=== PATIENT | male | born 1965 | race American Indian/Alaskan Native ===

== ENCOUNTER 2017-07-29 13:04 | Inpatient (IN) | payer MEDICARE ==
[2017-07-29] MEDS ORDERED: NACL 0.9% IV ONE (13:27)
[2017-07-29] MEDS ORDERED: ACTIVASE IV ONE ×2 (13:27)
--- NOTE | 2017-07-29 13:27 | Cat Scan Report ---
FINAL REPORT EXAM: CT HEAD/BRAIN WO CON HISTORY: neuro deficits < 6hrs or sx present upon awakening TECHNIQUE: CT of the Head without IV contrast. PRIORS: None currently available. FINDINGS: Small focal area of ill-defined attenuation in the right temporal lobe on series 2:23 and right lateral frontal lobe on series 2:36 may represent areas of acute ischemia. Small area of encephalomalacia noted in the posterior right frontal lobe on series 2:41 is well-defined and appears to represent chronic ischemia or trauma. There is no hemorrhage. There is no midline shift. There is no hydrocephalus. There is no mass. Age appropriate frazier-white matter attenuation is noted. There is no calvarial fracture. The temporal bones demonstrate aerated mastoid air cells. The middle ears appear unremarkable. Paranasal sinuses are unremarkable. Globes are intact. IMPRESSION: Possible acute ischemia noted within the right lateral temporal and frontal lobes. Correlation with MRI may be helpful clinically indicated. Chronic ischemic disease suspected in the posterior right frontal lobe. July 29, 2017 at 1021 PDT: I discussed the findings over phone with Dr. Van.
[2017-07-29] MEDS ORDERED: BABY ASPIRIN PO ONE (13:41)
--- NOTE | 2017-07-29 13:43 | Emergency Department Report ---
HPI - General Chief Complaint: Neuro Symptoms/Deficit Time Seen by Provider: 07/29/17 13:10 ED Past Medical Hx - Past Medical History Hx Hypertension: Yes Hx Diabetes: Yes - Surgical History Past Surgical History?: No Hx Coronary Stent: No Hx Internal Defibrillator: No Hx Cholecystectomy: No Hx Appendectomy: No Hx Breast Surgery: No - Social History Smoking Status: Never Smoker Substance Use Type: None ED Review of Systems ROS: Stated complaint: POSS STROKE Other details as noted in HPI Physical Exam - Physical Exam Vital Signs: Vital Signs 07/29/17 13:04 Temperature 98.8 F Pulse Rate 71 Respiratory 18 Rate Blood Pressure 138/93 ED Course Vital Signs 07/29/17 13:04 Temperature 98.8 F Pulse Rate 71 Respiratory 18 Rate Blood Pressure 138/93 Critical care attestation.: If time is entered above; I have spent that time in minutes in the direct care of this critically ill patient, excluding procedure time. ED Disposition Clinical Impression: Left temporal lobe infarction TIA (transient ischemic attack) Qualifiers: Transient cerebral ischemia type: unspecified Qualified Code(s): G45.9 - Transient cerebral ischemic attack, unspecified Disposition: DC-09 OP ADMIT IP TO THIS HOSP Is pt being admited?: Yes Does the pt Need Aspirin: Yes Condition: Fair Time of Disposition: 13:42
--- NOTE | 2017-07-29 13:45 | Emergency Department Report ---
HPI - General Chief Complaint: Neuro Symptoms/Deficit Time Seen by Provider: 07/29/17 13:10 - HPI HPI: The patient's 51-year-old male with a history of heart disease, and whom presents for evaluation of strokelike symptoms. The patient reports sudden onset of left arm and hand paralysis and coordination difficulty, right facial droop, inability to speak one hour prior to arrival. Per EMS the patient's symptoms were witnessed by them and resolve in route to the ED. The patient denies fever, head injury, headache, neck pain, neck stiffness, vision or hearing changes, smell or taste changes, current paresthesias or lateralizing motor deficit, current facial drooping or slurred speech, seizure-like activity , urine or bowel incontinence or retention, or current other focal neurological deficit. ED Past Medical Hx - Past Medical History Hx Hypertension: Yes Hx Diabetes: Yes - Surgical History Past Surgical History?: No Hx Coronary Stent: No Hx Internal Defibrillator: No Hx Cholecystectomy: No Hx Appendectomy: No Hx Breast Surgery: No - Social History Smoking Status: Never Smoker Substance Use Type: None - Medications Home Medications: Home Medications Medication Instructions Recorded Confirmed Last Taken Type Carvedilol [Coreg] 25 mg PO BID 07/29/17 07/29/17 Unknown History Furosemide [Lasix TAB] 40 mg PO QDAY 07/29/17 07/29/17 Unknown History Gabapentin [Neurontin] 300 mg PO DAILY 07/29/17 07/29/17 Unknown History HumuLIN 70/30 Kwikpen 5 units SQ BID 07/29/17 07/29/17 Unknown History Hydralazine HCl 25 mg PO TID 07/29/17 07/29/17 Unknown History ISOSORBIDE MONOnitrate [Imdur ER] 60 mg PO QDAY 07/29/17 07/29/17 Unknown History Lisinopril [Zestril TAB] 40 mg PO QDAY 07/29/17 07/29/17 Unknown History Omeprazole 40 mg PO DAILY 07/29/17 07/29/17 Unknown History Simvastatin 40 mg PO DAILY 07/29/17 07/29/17 Unknown History Spironolactone [Aldactone] 25 mg PO QDAY 07/29/17 07/29/17 Unknown History ED Review of Systems ROS: Stated complaint: POSS STROKE Other details as noted in HPI Constitutional: denies: fever ENT: denies: throat or neck pain Respiratory: denies: cough, shortness of breath Cardiovascular: denies: chest pain Endocrine: denies unexplained weight loss or gain Gastrointestinal: denies: abdominal pain, nausea Genitourinary: denies: dysuria Musculoskeletal: denies: leg swelling Skin: denies: rash Neurological: reports facial drooping, slurred speech, and left upper extremity lateralizing motor weakness denies: headache Hematological/Lymphatic: denies: easy bleeding or easy bruising Psych: denies sadness or hopelessness Physical Exam - Physical Exam Vital Signs: Vital Signs 07/29/17 13:04 Temperature 98.8 F Pulse Rate 71 Respiratory 18 Rate Blood Pressure 138/93 Physical Exam: General: well-nourished, well-developed, no acute distress Head: Normocephalic, atraumatic Eyes: normal sclera ENT: Mucous membranes are pink and moist Neck: trachea midline, neck supple, No neck stiffness, no cervical adenopathy Respiratory: Breath sounds equal bilaterally, no wheezing, rales, or rhonchi Cardio: S1 and S2 present, no murmurs, rubs, gallops, capillary refill is brisk Abdomen: Normoactive bowel sounds, soft abdomen, no rigidity, no guarding or rebound tenderness Musc: No pitting edema Skin: No rash Neuro: alert oriented x4, normal cognition, speech normal, PERRL, EOM intact, no facial drooping, no uvula or tongue deviation on protrusion, no deficit with rotation of neck or shoulder shrug, no obvious gross motor deficit in the upper or lower extremities with flexion or extension at the shoulder, elbow, wrist, hip, knee, or ankle bilaterally, no obvious gross sensation deficit to crude touch or 2 pt discrimination, 2+ symmetric reflexes on DTR testing, no coordination deficit with [id number] or [id number] testing, Babinski downgoing, patient able to to ambulate without abnormal gait Psych: Normal affect ED Course Vital Signs 07/29/17 13:04 Temperature 98.8 F Pulse Rate 71 Respiratory 18 Rate Blood Pressure 138/93 ED Medical Decision Making - Lab Data Result diagrams: 07/29/17 13:23 07/29/17 13:23 - Medical Decision Making The patient was seen and examined by myself. The patient is placed on a shelter monitor and continuous pulse ox. On initial evaluation, the patient was found to be in no distress. Evaluation orders were placed. Code stroke was called. CT scan of the head was obtained and revealed findings concerning for a right thalamus ischemic infarct. The on-call neurologist was contacted. He evaluated the patient. He submitted that the patient is not a TPA candidate as the patient's symptoms have all resolved. As the patient's symptoms are all resolved, as the patient has no neuro deficits on my exam or the telemetry neurologist Dr. Ye's evaluation, the patient is given asprin for txt of his stroke. Lab results are grossly not concerning. Dr. Acosta the physician on-call for the hospitalist service was contacted. He agreed to admit the patient for further treatment and close monitoring. The ED admit order was placed. The patient was admitted in guarded condition. Critical care attestation.: If time is entered above; I have spent that time in minutes in the direct care of this critically ill patient, excluding procedure time. ED Disposition Clinical Impression: Left temporal lobe infarction TIA (transient ischemic attack) Qualifiers: Transient cerebral ischemia type: unspecified Qualified Code(s): G45.9 - Transient cerebral ischemic attack, unspecified Disposition: DC-09 OP ADMIT IP TO THIS HOSP Is pt being admited?: Yes Does the pt Need Aspirin: Yes Condition: Fair Time of Disposition: 13:45
[2017-07-29 13:47] LABS: Basophils # (Auto) 0.1 K/mm3 (0.0-0.1); Basophils % (Auto) 0.9 % (0.0-1.8); Eosinophils # (Auto) 0.1 K/mm3 (0.0-0.4); Eosinophils % (Auto) 0.7 % (0.0-4.3); Hematocrit 48.8 % (35.5-45.6); Hemoglobin 15.7 gm/dl (11.8-15.2); Lymphocytes # (Auto) 3.6 K/mm3 (1.2-5.4); Lymphocytes % (Auto) 46.9 % (13.4-35.0); Mean Corpuscular HGB Conc 32 % (32-34); Mean Corpuscular Hemoglobin 27 pg (28-32); Mean Corpuscular Volume 83 fl (84-94); Monocytes # (Auto) 0.6 K/mm3 (0.0-0.8); Monocytes % (Auto) 8.4 % (0.0-7.3); Platelet Count 258 K/mm3 (140-440); Red Blood Count 5.88 M/mm3 (3.65-5.03)
[2017-07-29 13:57] LABS: INR 0.88 (0.87-1.13)
[2017-07-29 13:58] LABS: Partial Thromboplastin Time 33.1 Sec. (24.2-36.6)
[2017-07-29 14:46] LABS: BUN/Creatinine Ratio 15; Blood Urea Nitrogen 15 mg/dL (9-20); Calcium 9.1 mg/dL (8.4-10.2); Hemolysis Index 28
--- NOTE | 2017-07-29 17:32 | History and Physical Report ---
History of Present Illness Date of examination: 07/29/17 Date of admission: 07/29/2017 Chief complaint: Chief complaint: Left upper extremity weakness and unable to talk which lasted for 30 minutes one hour prior to admission History of present illness: LESLIE: 51-year-old -German male comes in for difficulty in talking and left upper extremity weakness which lasted about 30 minutes and recovered completely. This happened about 1 hour prior to arrival. Patient says that he his back to normal now. Patient has a history of hypertension and insulin- dependent diabetes coronary artery disease hyperlipidemia and gastroesophageal refers disease. No recent travel or shortness of breath No chest pain Patient able to walk normally and talk normally now. Past Medical History Hx Hypertension: Yes Hx Diabetes: Yes Surgical History Past Surgical History?: No Hx Coronary Stent: No Hx Internal Defibrillator: No Hx Cholecystectomy: No Hx Appendectomy: No Hx Breast Surgery: No Social History Smoking Status: Never Smoker Substance Use Type: None Family history Hypertension Medications Home Medications: Home Medications Medication Instructions Recorded Confirmed Last Taken Type Carvedilol [Coreg] 25 mg PO BID 07/29/17 07/29/17 Unknown History Furosemide [Lasix TAB] 40 mg PO QDAY 07/29/17 07/29/17 Unknown History Gabapentin [Neurontin] 300 mg PO DAILY 07/29/17 07/29/17 Unknown History HumuLIN 70/30 Kwikpen 5 units SQ BID 07/29/17 07/29/17 Unknown History Hydralazine HCl 25 mg PO TID 07/29/17 07/29/17 Unknown History ISOSORBIDE MONOnitrate [Imdur ER] 60 mg PO QDAY 07/29/17 07/29/17 Unknown History Lisinopril [Zestril TAB] 40 mg PO QDAY 07/29/17 07/29/17 Unknown History Omeprazole 40 mg PO DAILY 07/29/17 07/29/17 Unknown History Simvastatin 40 mg PO DAILY 07/29/17 07/29/17 Unknown History Spironolactone [Aldactone] 25 mg PO QDAY 07/29/17 07/29/17 Unknown History Review of Systems ROS: Stated complaint: POSS STROKE Other details as noted in HPI Constitutional: denies: fever ENT: denies: throat or neck pain Respiratory: denies: cough, shortness of breath Cardiovascular: denies: chest pain Endocrine: denies unexplained weight loss or gain Gastrointestinal: denies: abdominal pain, nausea Genitourinary: denies: dysuria Musculoskeletal: denies: leg swelling Skin: denies: rash Neurological: reports facial drooping, slurred speech, and left upper extremity lateralizing motor weakness denies: headache Hematological/Lymphatic: denies: easy bleeding or easy bruising Psych: denies sadness or hopelessness 14 point review of systems done and otherwise negative Medications and Allergies Allergies Allergy/AdvReac Type Severity Reaction Status Date / Time Penicillins Allergy Unknown Verified 07/29/17 13:06 Home Medications Medication Instructions Recorded Confirmed Last Taken Type Carvedilol [Coreg] 25 mg PO BID 07/29/17 07/29/17 Unknown History Furosemide [Lasix TAB] 40 mg PO QDAY 07/29/17 07/29/17 Unknown History Gabapentin [Neurontin] 300 mg PO DAILY 07/29/17 07/29/17 Unknown History HumuLIN 70/30 Kwikpen 5 units SQ BID 07/29/17 07/29/17 Unknown History Hydralazine HCl 25 mg PO TID 07/29/17 07/29/17 Unknown History ISOSORBIDE MONOnitrate [Imdur ER] 60 mg PO QDAY 07/29/17 07/29/17 Unknown History Lisinopril [Zestril TAB] 40 mg PO QDAY 07/29/17 07/29/17 Unknown History Omeprazole 40 mg PO DAILY 07/29/17 07/29/17 Unknown History Simvastatin 40 mg PO DAILY 07/29/17 07/29/17 Unknown History Spironolactone [Aldactone] 25 mg PO QDAY 07/29/17 07/29/17 Unknown History Exam - Physical Exam Narrative exam: Lying in bed comfortably - Constitutional Vitals: Temp Pulse Resp BP Pulse Ox 98.8 F 67 13 130/86 97 07/29/17 13:04 07/29/17 17:00 07/29/17 17:00 07/29/17 17:00 07/29/17 17:00 General appearance: Present: no acute distress, well-nourished - EENT Eyes: Present: PERRL ENT: hearing intact, clear oral mucosa - Neck Neck: Present: supple, normal ROM - Respiratory Respiratory effort: normal Respiratory: bilateral: CTA - Cardiovascular Rhythm: regular Heart Sounds: Present: S1 & S2. Absent: rub, click - Extremities Extremities: no ischemia, pulses intact, pulses symmetrical, No edema Peripheral Pulses: within normal limits - Abdominal General gastrointestinal: Present: soft, non-tender, non-distended, normal bowel sounds Male genitourinary: Present: normal - Integumentary Integumentary: Present: clear, warm, dry - Musculoskeletal Musculoskeletal: gait normal, strength equal bilaterally - Psychiatric Psychiatric: appropriate mood/affect, intact judgment & insight - Neurologic Neurologic: CNII-XII intact, moves all extremities - Allied Health Allied health notes reviewed: nursing, case management Results - Labs CBC & Chem 7: 07/29/17 13:23 07/29/17 13:23 Labs: Laboratory Last Values WBC 7.6 K/mm3 (4.5-11.0) 07/29/17 13:23 RBC 5.88 M/mm3 (3.65-5.03) H 07/29/17 13:23 Hgb 15.7 gm/dl (11.8-15.2) H 07/29/17 13:23 Hct 48.8 % (35.5-45.6) H 07/29/17 13:23 MCV 83 fl (84-94) L 07/29/17 13:23 MCH 27 pg (28-32) L 07/29/17 13:23 MCHC 32 % (32-34) 07/29/17 13:23 RDW 18.0 % (13.2-15.2) H 07/29/17 13:23 Plt Count 258 K/mm3 (140-440) 07/29/17 13:23 Lymph % (Auto) 46.9 % (13.4-35.0) H 07/29/17 13:23 Quay % (Auto) 8.4 % (0.0-7.3) H 07/29/17 13:23 Eos % (Auto) 0.7 % (0.0-4.3) 07/29/17 13:23 Baso % (Auto) 0.9 % (0.0-1.8) 07/29/17 13:23 Lymph # 3.6 K/mm3 (1.2-5.4) 07/29/17 13:23 Quay # 0.6 K/mm3 (0.0-0.8) 07/29/17 13:23 Eos # 0.1 K/mm3 (0.0-0.4) 07/29/17 13:23 Baso # 0.1 K/mm3 (0.0-0.1) 07/29/17 13:23 Seg Neutrophils % 43.1 % (40.0-70.0) 07/29/17 13:23 Seg Neutrophils # 3.3 K/mm3 (1.8-7.7) 07/29/17 13:23 PT 12.4 Sec. (12.2-14.9) 07/29/17 13:23 INR 0.88 (0.87-1.13) 07/29/17 13:23 APTT 33.1 Sec. (24.2-36.6) 07/29/17 13:23 Thrombin Time 15.6 Sec. (15.1-19.6) 07/29/17 13:23 Sodium 140 mmol/L (137-145) 07/29/17 13:23 Potassium 3.7 mmol/L (3.6-5.0) 07/29/17 13:23 Chloride 100.9 mmol/L (98-107) 07/29/17 13:23 Carbon Dioxide 22 mmol/L (22-30) 07/29/17 13:23 Anion Gap 21 mmol/L 07/29/17 13:23 BUN 15 mg/dL (9-20) 07/29/17 13:23 Creatinine 1.0 mg/dL (0.8-1.5) 07/29/17 13:23 Estimated GFR > 60 ml/min 07/29/17 13:23 BUN/Creatinine Ratio 15 % 07/29/17 13:23 Glucose 128 mg/dL (75-100) H 07/29/17 13:23 Calcium 9.1 mg/dL (8.4-10.2) 07/29/17 13:23 Troponin T < 0.010 ng/mL (0.00-0.029) 07/29/17 13:23 NT-Pro-B Natriuret Pep 864.3 pg/mL (0-900) 07/29/17 13:23 - Imaging and Cardiology EKG: report reviewed (sinus bradycardia prolonged MO interval and nonspecific ST -T wave changes-EKG interpreted by me) Assessment and Plan Advance Directives: Yes (full code) VTE prophylaxis?: Chemical Plan of care discussed with patient/family: Yes - Patient Problems (1) TIA (transient ischemic attack) Current Visit: Yes Status: Acute Qualifiers: Transient cerebral ischemia type: unspecified Qualified Code(s): G45.9 - Transient cerebral ischemic attack, unspecified Plan to address problem: Patient has classic transient ischemic attack Will get MRI/MRA carotid duplex scan and echocardiogram We'll also initiate him on Plavix 75 daily Neurology consult by Dr. DUARTE (2) Insulin dependent diabetes mellitus Current Visit: Yes Status: Acute Plan to address problem: Continue insulin and coverage Check hemoglobin A1c (3) Hypertension Current Visit: Yes Status: Chronic Qualifiers: Hypertension type: essential hypertension Qualified Code(s): I10 - Essential (primary) hypertension Plan to address problem: Continue Coreg and lisinopril (4) Peripheral neuropathy Current Visit: Yes Status: Chronic Qualifiers: Peripheral neuropathy type: polyneuropathy, unspecified Qualified Code(s): G62.9 - Polyneuropathy, unspecified Plan to address problem: Continue gabapentin (5) Hyperlipidemia Current Visit: Yes Status: Chronic Qualifiers: Hyperlipidemia type: mixed hyperlipidemia Qualified Code(s): E78.2 - Mixed hyperlipidemia Plan to address problem: Continue statins (6) GERD (gastroesophageal reflux disease) Current Visit: Yes Status: Chronic Qualifiers: Esophagitis presence: without esophagitis Qualified Code(s): K21.9 - Gastro -esophageal reflux disease without esophagitis Plan to address problem: Continue omeprazole or a substitute (7) DVT prophylaxis Current Visit: Yes Status: Acute Plan to address problem: Heparin subcutaneously 5000 every 12
[2017-07-29] MEDS ORDERED: DILAUDID IV PRN (17:34)
[2017-07-29] MEDS ORDERED: ZOFRAN IV PRN ×2 (17:34→21:40)
[2017-07-29] MEDS ORDERED: SODIUM CHLORIDE FLUSH SYRINGE 10 ML IV PRN ×3 (17:34→21:43)
[2017-07-29] MEDS ORDERED: TYLENOL PO PRN ×2 (17:34→21:40)
[2017-07-29] MEDS ORDERED: MORPHINE IV PRN (17:34)
[2017-07-29] MEDS: ALDACTONE PO SCH (18:13)
[2017-07-29] MEDS: IMDUR PO SCH (18:14)
[2017-07-29] MEDS: ZESTRIL PO SCH (18:15)
[2017-07-29] MEDS: LASIX PO SCH (18:15)
[2017-07-29] MEDS: NEURONTIN PO SCH (18:15)
[2017-07-29] MEDS: COREG PO SCH (21:20)
[2017-07-29] MEDS: APRESOLINE PO SCH (21:20)
[2017-07-29] MEDS: PRAVACHOL PO SCH (21:20)
[2017-07-29] MEDS: SODIUM CHLORIDE FLUSH SYRINGE 10 ML IV SCH ×2 (21:21→23:02)
[2017-07-29] MEDS ORDERED: APRESOLINE IV PRN (21:43)
[2017-07-29] MEDS ORDERED: INSULIN ISOPHANE HUMAN SQ SCH (22:00)
[2017-07-29] MEDS ORDERED: INSULIN REGULAR HUMAN SQ SCH (22:00)
[2017-07-29] MEDS ORDERED: PEPCID IV SCH (22:00)
[2017-07-29] MEDS: HumaLOG SUB-Q SCH (22:45)
[2017-07-29] MEDS: PLAVIX PO SCH (23:00)
[2017-07-29] MEDS: HEPARIN SUB-Q SCH (23:01)
[2017-07-30] MEDS: HumaLOG SUB-Q SCH ×4 (07:40→23:35)
[2017-07-30] MEDS: APRESOLINE PO SCH ×3 (08:07→21:43)
[2017-07-30] MEDS ORDERED: NON-FORMULARY (Omeprazole [Omeprazole] 40 MG) PO SCH (10:00)
[2017-07-30] MEDS ORDERED: NON-FORMULARY (Simvastatin [Simvastatin] 40 MG) PO SCH (10:00)
[2017-07-30] MEDS: COREG PO SCH ×2 (11:19→21:43)
[2017-07-30] MEDS: IMDUR PO SCH (11:24)
[2017-07-30] MEDS: LASIX PO SCH (11:25)
[2017-07-30] MEDS: ZESTRIL PO SCH (11:25)
[2017-07-30] MEDS: NEURONTIN PO SCH ×4 (11:25→21:44)
[2017-07-30] MEDS: HEPARIN SUB-Q SCH ×3 (11:26→21:42)
[2017-07-30] MEDS: PLAVIX PO SCH (11:41)
[2017-07-30] MEDS: PROTONIX PO SCH (11:41)
[2017-07-30] MEDS: SODIUM CHLORIDE FLUSH SYRINGE 10 ML IV SCH ×4 (11:42→21:44)
[2017-07-30] MEDS: ALDACTONE PO SCH (12:01)
[2017-07-30] MEDS: PROCARDIA XL PO SCH (12:02)
[2017-07-30 12:34] LABS: Basophils % (Auto) 0.5 % (0.0-1.8); Eosinophils % (Auto) 0.4 % (0.0-4.3); Hematocrit 51.4 % (35.5-45.6); Hemoglobin 16.8 gm/dl (11.8-15.2); Lymphocytes # (Auto) 2.6 K/mm3 (1.2-5.4); Lymphocytes % (Auto) 31.3 % (13.4-35.0); Mean Corpuscular HGB Conc 33 % (32-34); Mean Corpuscular Hemoglobin 27 pg (28-32); Mean Corpuscular Volume 83 fl (84-94); Monocytes # (Auto) 0.6 K/mm3 (0.0-0.8); Monocytes % (Auto) 6.6 % (0.0-7.3); Platelet Count 240 K/mm3 (140-440); Red Blood Count 6.21 M/mm3 (3.65-5.03)
[2017-07-30 12:47] LABS: Iron 145 ug/dL (49-181); Total Iron Binding Capacity 350 mcg/dL (250-450)
[2017-07-30 12:48] LABS: Alanine Aminotransferase 11 units/L (7-56); BUN/Creatinine Ratio 15; Blood Urea Nitrogen 12 mg/dL (9-20); Calcium 9.4 mg/dL (8.4-10.2); Chol/HDL Ratio 5.35 %; HDL Cholesterol 34 mg/dL (40-59); Hemolysis Index 10; LDL Cholesterol,Direct 121 mg/dL (50-130)
--- NOTE | 2017-07-30 13:00 | Consultation ---
History of Present Illness Consult date: 07/30/17 Requesting physician: JODY VILLEGAS Reason for Consult: TIA Chief complaint: TIA History of present illness: This 51-year-old left-handed -Turkish male per ER physician: "51-year- old male with a history of heart disease, and whom presents for evaluation of strokelike symptoms. The patient reports sudden onset of left arm and hand paralysis and coordination difficulty, right facial droop, inability to speak one hour prior to arrival. Per EMS the patient's symptoms were witnessed by them and resolve in route to the ED. The patient denies fever, head injury, headache, neck pain, neck stiffness, vision or hearing changes, smell or taste changes, current paresthesias or lateralizing motor deficit, current facial drooping or slurred speech, seizure-like activity, urine or bowel incontinence or retention, or current other focal neurological deficit." He states he had trouble moving his left arm and leg which were numb as well as weak and his tongue was deviated to the right preventing him from speaking, along with left facial droop (not right facial as listed by ER). These symptoms lasted 20-30 minutes associated with some lightheadedness. CT scan on my review shows possibly a hole indicating an old stroke in the medulla versus noise and a subacute stroke adjacent to old right anterior parietal stroke. Blood pressures at home in the 130 to 140s over 80s but are in the 140/100 range here. He has been on 81 mg of aspirin and simvastatin 40 mg today at home. Duplex of carotids was normal with antegrade vertebral artery flow. Past History Past Medical History: diabetes, hypertension. 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 denies: smoking (smoked cigars till 2005), alcohol abuse (quit alcohol in 2069), prescription drug abuse, IV drug use (never illicit drugs) Family history: hypertension (mother and a sister). denies: stroke, other ( negative for epilepsy) Medications and Allergies Allergies Allergy/AdvReac Type Severity Reaction Status Date / Time Penicillins Allergy Unknown Verified 07/29/17 13:06 Home Medications Medication Instructions Recorded Confirmed Last Taken Type Carvedilol [Coreg] 25 mg PO BID 07/29/17 07/29/17 Unknown History Furosemide [Lasix TAB] 40 mg PO QDAY 07/29/17 07/29/17 Unknown History Gabapentin [Neurontin] 300 mg PO DAILY 07/29/17 07/29/17 Unknown History HumuLIN 70/30 Kwikpen 5 units SQ BID 07/29/17 07/29/17 Unknown History Hydralazine HCl 25 mg PO TID 07/29/17 07/29/17 Unknown History ISOSORBIDE MONOnitrate [Imdur ER] 60 mg PO QDAY 07/29/17 07/29/17 Unknown History Lisinopril [Zestril TAB] 40 mg PO QDAY 07/29/17 07/29/17 Unknown History Omeprazole 40 mg PO DAILY 07/29/17 07/29/17 Unknown History Simvastatin 40 mg PO DAILY 07/29/17 07/29/17 Unknown History Spironolactone [Aldactone] 25 mg PO QDAY 07/29/17 07/29/17 Unknown History Active Meds: Active Medications Acetaminophen (Tylenol) 650 mg PO Q4H PRN PRN Reason: Pain MILD(1-3)/Fever >100.5/[place]FF[place] Aspirin (Aspirin) 325 mg PO QDAY [facility] Carvedilol (Coreg) 25 mg PO BID [facility] Last Admin: 07/30/17 11:19 Dose: 25 mg Clonazepam (Klonopin) 1 mg PO QHS [facility] Furosemide (Lasix) 40 mg PO QDAY [facility] Last Admin: 07/30/17 11:25 Dose: 40 mg Gabapentin (Neurontin) 600 mg PO QHS [facility] Gabapentin (Neurontin) 300 mg PO DAILY@1700 [facility] Heparin Sodium (Porcine) (Heparin) 5,000 unit SUB-Q Q12HR [facility] Last Admin: 07/30/17 12:04 Dose: Not Given Hydralazine HCl (Apresoline) 5 mg IV Q6H PRN PRN Reason: Keep SBP between 160-185 mm Hg Hydralazine HCl (Apresoline) 50 mg PO TID [facility] Hydromorphone HCl (Dilaudid) 0.5 mg IV Q3H PRN PRN Reason: Pain , Severe (7-10) Insulin Human Isoph/Insulin Regular (Humulin 70/30) 5 unit SUB-Q BIDDIAB [facility] Last Admin: 07/30/17 11:26 Dose: 5 unit Insulin Human Lispro (Humalog) 0 unit SUB-Q [facility]; Protocol Last Admin: 07/30/17 11:40 Dose: Not Given Isosorbide Mononitrate (Imdur) 60 mg PO QDAY [facility] Last Admin: 07/30/17 11:24 Dose: 60 mg Lisinopril (Zestril) 40 mg PO QDAY [facility] Last Admin: 07/30/17 11:25 Dose: 40 mg Morphine Sulfate (Morphine) 2 mg IV Q4H PRN PRN Reason: Pain, Moderate (4-6) Nifedipine (Procardia Xl) 90 mg PO QDAY [facility] Last Admin: 07/30/17 12:02 Dose: 90 mg Ondansetron HCl (Zofran) 4 mg IV Q8H PRN PRN Reason: Nausea And Vomiting Oxycodone/Acetaminophen (Percocet 5/325) 1 tab PO Q6H PRN PRN Reason: Pain, Moderate (4-6) Pantoprazole Sodium (Protonix) 40 mg PO DAILY [facility] Last Admin: 07/30/17 11:41 Dose: 40 mg Pravastatin Sodium (Pravachol) 80 mg PO QHS [facility] Last Admin: 07/29/17 21:20 Dose: 80 mg Sodium Chloride (Sodium Chloride Flush Syringe 10 Ml) 10 ml IV BID [facility] Last Admin: 07/30/17 11:42 Dose: 10 ml Sodium Chloride (Sodium Chloride Flush Syringe 10 Ml) 10 ml IV PRN PRN PRN Reason: LINE FLUSH Sodium Chloride (Sodium Chloride Flush Syringe 10 Ml) 10 ml IV BID [facility] Last Admin: 07/30/17 11:42 Dose: 10 ml Sodium Chloride (Sodium Chloride Flush Syringe 10 Ml) 10 ml IV PRN PRN PRN Reason: LINE FLUSH Spironolactone (Aldactone) 25 mg PO QDAY [facility] Last Admin: 07/30/17 12:01 Dose: 25 mg Temazepam (Restoril) 15 mg PO QHS [facility] Review of Systems All systems: negative (no headaches or dizziness. Has sleep apnea and was on CPAP for 3 or 4 years but because of moving his residence, has been unable to get a new working CPAP machine for the past 4 years though he is trying to get it now. Also has restless legs but on questioning this seems to also be perhaps periodic limb movement disorder and also REM behavioral sleep disorder with flinging movements since his fiance gets hit by them while he is asleep. He has some sleep talking but no sleep walking. She notes tonic elevation of either arm in sleep that can last 15 minutes if she doesn't gently push the arm down. If she does so, it tends to stay down but moves around also. He takes gabapentin 300 mg at bedtime without any benefit for restless legs or REM behavior sleep disorder.) Physical Examination - Vital Signs Vital Signs: Vital Signs Temp Pulse Resp BP 98.8 F 71 18 138/93 07/29/17 13:04 07/29/17 13:04 07/29/17 13:04 07/29/17 13:04 - Physical Exam Narrative exam: General Appearance: well developed but obese (per BMI) early 50s - Turkish male in NAD but irritable when asked arithmetic questions or name of President, accompanied by his fiance at the bedside. HEENT: atraumatic, normocephalic; no bruits, 2+ Charlie without soreness or induration or enlargement, sclerae nonicteric. Oropharynx pink and moist. Neck: supple, no bruits. Heart: no murmur or extra sounds though sounds are distant. Extremities: no clubbing, cyanosis or edema. 2+ dorsalis pedis pulses bilaterally. Neurologic Exam: Mental Status: Awake, alert, oriented to August 03 though he knows it is Saturday and knows the year, speech is clear, names pen but not tip of pen and gives comb but calls the teeth the "picks" (which is probably a valid answer), and abstracts well. Refuses to name President or [place]bler Upper, serial 7's are poor despite trying to count down on his fingers though he gives 5+7= 12, has some right-left confusion, gets 2 of 3 objects at 3 minutes, cannot spell WORLD or CATCH forwards correctly so did not ask him to try those backwards. Cranial Nerves: thornton full, no papilledema, SVPs present, PERRLA, EOMs full without nystagmus or diplopia, facial sensation intact to pinprick and light touch, no facial weakness, Lugo is midline, palate rises symmetrically to phonation and gags are positive, shoulder shrug is 5 X 2, tongue protrudes midline. Cerebellar: finger to nose slightly dysmetric on the left at the endpoint, heel to levy is normal bilaterally. Sensory: intact to light touch, pinprick, and vibrations. Double simultaneous stimulation is intact. Motor Exam Upper Extremities: no drift or pronation, Mark intact. Client Engagement Specialist are 5 X 2, tone is normal. No atrophy or fasciculations are noted visually. Motor Exam Lower Extremities: no leg lag, quadriceps and anterior tibials and gastrocnemius are 5 X 2. Mark intact. Tone is normal. No atrophy or fasciculations are noted visually. Reflexes: Palmomental, snout and jaw jerk are negative. Triceps, biceps and brachioradialis are 1 on the right and trace in the left bilaterally. Ned' s is negative bilaterally. Knee jerks are 0 right and 1 left becoming trace on the right with reinforcement, ankle jerks are 0 bilaterally even with reinforcement and without clonus. Toes are downgoing strongly on the right and less strongly on the left to Babinski testing. - Assessment Assessment Interval: Baseline - Level of Consciousness 1a. Level of Consciousness: alert - LOC Questions 1b. LOC Questions: answers correctly - LOC Command 1c. LOC Commands: performs tasks correctly - Best Gaze 2. Best Gaze: normal - Visual 3. Visual: no visual loss - Facial Palsy 4. Facial Palsy: normal symmetrical movement - Motor Arm 5b. Motor Arm Right: no drift 5a. Motor Arm Left: no drift - Motor Leg 6a. Motor Leg Left: no drift 6b. Motor Leg Right: no drift - Limb Ataxia 7. Limb Ataxia: present 1 limb - Sensory 8. Sensory: normal - Best Language 9. Best Language: no aphasia - Dysarthria 10. Dysarthria: normal - Extinction and Inattention 11. Extinction/Inattention: no abnormality - Scoring Total Score: 1 Stroke Severity: Minor Stroke Results - Laboratory Findings CBC and BMP: 07/30/17 12:07 07/30/17 12:07 Abnormal Lab Findings: Abnormal Labs 07/29/17 07/29/17 07/30/17 13:23 13:23 06:12 RBC 5.88 H Hgb 15.7 H Hct 48.8 H MCV 83 L MCH 27 L RDW 18.0 H Lymph % (Auto) 46.9 H Boyd % (Auto) 8.4 H Glucose 128 H POC Glucose 132 H HDL Cholesterol 07/30/17 07/30/17 12:07 12:07 RBC 6.21 H Hgb 16.8 H Hct 51.4 H MCV 83 L MCH 27 L RDW 18.0 H Lymph % (Auto) Boyd % (Auto) Glucose POC Glucose HDL Cholesterol 34 L Assessment and Plan Impression: 1. Embolic strokes 2. Hypertension 3. Diabetes 4. Restless legs syndrome (RLS) 5. Periodic limb movements of sleep (PLMS) 6. REM behavioral sleep disorder (RBSD) Plan: 1. Await echo reading. Bubbles were negative. 2. Await brain MRI and MRA. (Later noted he has pacemaker so can't get MRI. Could likely get MRI at [facility] or [facility], arrange through their MRI coordinator who would send him to Cardiac electrophysiology clinic to verify it is ok. They can now do MRIs on even old pacemakers and defibrillators). 3. Aspirin increased to 325 mg per discussion with Dr. Reese at bedside. No need for Plavix yet. 4. Will check iron studies for RLS. If iron is low or ferritin is less than 60 , would suggest Slow-Fe or Feosol OTC bid (building to double that amount if iron is low or ferritin is less than 30). Warn him stools will be black. 5. Will increase to 300 mg gabapentin at supper and 600 mg qhs for RLS and PLMS. 6. Will add clonazepam 1 mg qhs for RBSD. 7. May need 30 day event monitoring as outpatient to rule out PAF. 8. I suggested an SSRI for his irritability. 9. During today's examination, he experienced an episode of hot flash with numbness of left arm for a few minutes without weakness. Blood pressure remained in the 140/100 range for which I had the nurse check with Dr. Reese about perhaps getting some IV hydralazine. 45 min spent including review of CT images and echo report. Thank you for the interesting consultation on this early 50s man. Will sign off. Call for any questions.
--- NOTE | 2017-07-30 19:27 | Progress Note ---
Assessment and Plan Assessment and plan: 51-year-old -Guinean male comes in for difficulty in talking and left upper extremity weakness, and leg, left facial droop which lasted about 30 minutes and recovered completely. This happened about 1 hour prior to arrival. Patient says that he his back to normal now. Patient has a history of hypertension and insulin-dependent diabetes coronary artery disease hyperlipidemia and gastroesophageal refers disease. He also reported tongue deviation. 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 Initial CT Scan showed per the Nurologist possibly a hole indicating an old stroke in the medulla versus noise and a subacute stroke adjacent to old right anterior parietal stroke. No recent travel or shortness of breath. No chest pain Presumed Embolic Stroke HTN RAYNA OBESITY Insulin dependant Diabetes Mellitus Severe Cardiomyopathy s/p Pacemaker Peripheral Neuropathy GERD HYPERLIPIDEMIA RLS PLAN: Supportive care, May need to obtain repeat CT scan brain, Since unable to get MRI Change to ASA 325MG PO DAILY, Stain, Bp Control Iron studies per discussion with neurology Carotid US, Echocardiogram Reviewed adjust bp medication continue insulin therapy, Gabapentin. May need to adjust weight loss counselling provided DVT/GI prophy History Interval history: Patient seen and examined in no acute distress at this time. Reports symptoms improved. Hospitalist Physical - Constitutional Vitals: Temp Pulse Resp BP Pulse Ox 97.8 F 84 20 141/102 98 07/30/17 11:36 07/30/17 15:40 07/30/17 11:36 07/30/17 15:40 07/30/17 15:40 General appearance: Present: no acute distress, well-nourished, other (agitated during questioning) - EENT Eyes: Present: PERRL, EOM intact - Neck Neck: Present: supple, normal ROM - Respiratory Respiratory effort: normal Respiratory: bilateral: CTA - Cardiovascular Rhythm: regular Heart Sounds: Present: S1 & S2. Absent: systolic murmur - Extremities Extremities: no ischemia, pulses intact, pulses symmetrical, No edema, normal temperature, normal color, Full ROM Peripheral Pulses: within normal limits - Abdominal General gastrointestinal: soft, non-tender, non-distended, normal bowel sounds, other (obese) - Integumentary Integumentary: Present: clear, warm, dry - Psychiatric Psychiatric: appropriate mood/affect, other (some confusion with words) - Neurologic Neurologic: moves all extremities - Allied Health Allied health notes reviewed: nursing Results - Labs CBC & Chem 7: 07/30/17 12:07 07/30/17 12:07 Labs: Laboratory Last Values WBC 8.4 K/mm3 (4.5-11.0) 07/30/17 12:07 RBC 6.21 M/mm3 (3.65-5.03) H 07/30/17 12:07 Hgb 16.8 gm/dl (11.8-15.2) H 07/30/17 12:07 Hct 51.4 % (35.5-45.6) H 07/30/17 12:07 MCV 83 fl (84-94) L 07/30/17 12:07 MCH 27 pg (28-32) L 07/30/17 12:07 MCHC 33 % (32-34) 07/30/17 12:07 RDW 18.0 % (13.2-15.2) H 07/30/17 12:07 Plt Count 240 K/mm3 (140-440) 07/30/17 12:07 Lymph % (Auto) 31.3 % (13.4-35.0) 07/30/17 12:07 [place] % (Auto) 6.6 % (0.0-7.3) 07/30/17 12:07 Eos % (Auto) 0.4 % (0.0-4.3) 07/30/17 12:07 Baso % (Auto) 0.5 % (0.0-1.8) 07/30/17 12:07 Lymph # 2.6 K/mm3 (1.2-5.4) 07/30/17 12:07 [place] # 0.6 K/mm3 (0.0-0.8) 07/30/17 12:07 Eos # 0.0 K/mm3 (0.0-0.4) 07/30/17 12:07 Baso # 0.0 K/mm3 (0.0-0.1) 07/30/17 12:07 Seg Neutrophils % 61.2 % (40.0-70.0) 07/30/17 12:07 Seg Neutrophils # 5.2 K/mm3 (1.8-7.7) 07/30/17 12:07 PT 12.4 Sec. (12.2-14.9) 07/29/17 13:23 INR 0.88 (0.87-1.13) 07/29/17 13:23 APTT 33.1 Sec. (24.2-36.6) 07/29/17 13:23 Thrombin Time 15.6 Sec. (15.1-19.6) 07/29/17 13:23 Sodium 140 mmol/L (137-145) 07/30/17 12:07 Potassium 4.3 mmol/L (3.6-5.0) 07/30/17 12:07 Chloride 104.6 mmol/L (98-107) 07/30/17 12:07 Carbon Dioxide 23 mmol/L (22-30) 07/30/17 12:07 Anion Gap 17 mmol/L 07/30/17 12:07 BUN 12 mg/dL (9-20) 07/30/17 12:07 Creatinine 0.8 mg/dL (0.8-1.5) 07/30/17 12:07 Estimated GFR > 60 ml/min 07/30/17 12:07 BUN/Creatinine Ratio 15 % 07/30/17 12:07 Glucose 95 mg/dL (75-100) 07/30/17 12:07 POC Glucose 112 (70-105) H 07/30/17 16:23 Hemoglobin A1c 4.9 % (4-6) 07/29/17 13:23 Calcium 9.4 mg/dL (8.4-10.2) 07/30/17 12:07 Iron 145 ug/dL (49-181) 07/30/17 12:07 TIBC 350 mcg/dL (250-450) 07/30/17 12:07 Ferritin 73.3 ng/mL (13.0-400.0) 07/30/17 12:07 Total Bilirubin 0.80 mg/dL (0.1-1.2) 07/30/17 12:07 AST 18 units/L (5-40) 07/30/17 12:07 ALT 11 units/L (7-56) 07/30/17 12:07 Alkaline Phosphatase 78 units/L (35-129) 07/30/17 12:07 Troponin T < 0.010 ng/mL (0.00-0.029) 07/29/17 13:23 NT-Pro-B Natriuret Pep 864.3 pg/mL (0-900) 07/29/17 13:23 Total Protein 7.2 g/dL (6.3-8.2) 07/30/17 12:07 Albumin 4.0 g/dL (3.9-5) 07/30/17 12:07 Albumin/Globulin Ratio 1.3 % 07/30/17 12:07 Triglycerides 149 mg/dL (2-149) 07/30/17 12:07 Cholesterol 182 mg/dL (50-199) 07/30/17 12:07 LDL Cholesterol Direct 121 mg/dL (50-130) 07/30/17 12:07 HDL Cholesterol 34 mg/dL (40-59) L 07/30/17 12:07 Cholesterol/HDL Ratio 5.35 % 07/30/17 12:07 - Imaging and Cardiology CT Scan - head: image reviewed (subacute infert)
[2017-07-30] MEDS ORDERED: APRESOLINE IV PRN (19:32)
[2017-07-30] MEDS: PRAVACHOL PO SCH (21:43)
[2017-07-30] MEDS: RESTORIL PO SCH (21:44)
[2017-07-31] MEDS: HumaLOG SUB-Q SCH ×4 (07:51→21:52)
[2017-07-31] MEDS: APRESOLINE PO SCH ×3 (09:05→20:05)
[2017-07-31] MEDS: HEPARIN SUB-Q SCH (09:10)
[2017-07-31] MEDS: LASIX PO SCH (09:11)
[2017-07-31] MEDS: ASPIRIN PO SCH (09:11)
[2017-07-31] MEDS: PROCARDIA XL PO SCH (09:11)
[2017-07-31] MEDS: ZESTRIL PO SCH (09:11)
[2017-07-31] MEDS: COREG PO SCH ×3 (09:12→22:23)
[2017-07-31] MEDS: PROTONIX PO SCH (09:12)
[2017-07-31] MEDS: IMDUR PO SCH (09:12)
[2017-07-31] MEDS: ALDACTONE PO SCH (09:13)
[2017-07-31] MEDS: SODIUM CHLORIDE FLUSH SYRINGE 10 ML IV SCH ×4 (09:13→21:44)
--- NOTE | 2017-07-31 11:26 | Consultation ---
History of Present Illness Consult date: 07/31/17 Consult reason: chest pain, shortness of breath History of present illness: This is a 51yr old male who gives a history cardiac history of a nonischemic cardiomyopathy and has a indwelling cardiac defibrillator. Patient reports he underwent a cardiac cath 5 years ago, while living in [place], that showed no significant coronary artery disease but a decrease left ventricular ejection fraction of 15%. Patient reports he is followed by [facility] in [place]. He denies a recent cardiac workup. He is admitted with embolic CVA. There are no residual deficits. Overnight, patient complained of atypical chest pain. In addition, patient reports shortness of breath with minimal exertion, ongoing for several weeks. There is no lower extremity edema. Patient reports compliance with his medications. An echocardiogram this presentation demonstrates a 4 chamber dilated cardiomyopathy with a severely decreased left ventricular ejection fraction 10- 15%. A cardiac consultation was requested for further evaluation. 12 lead ECG is a sinus rhythm, no acute ischemic changes. 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 denies: smoking (smoked cigars till 2005), alcohol abuse (quit alcohol in 2069), prescription drug abuse, IV drug use (never illicit drugs) Family history: hypertension (mother and a sister). denies: stroke, other ( negative for epilepsy) Medications and Allergies Allergies Allergy/AdvReac Type Severity Reaction Status Date / Time Penicillins Allergy Unknown Verified 07/29/17 13:06 Home Medications Medication Instructions Recorded Confirmed Last Taken Type Carvedilol [Coreg] 25 mg PO BID 07/29/17 07/29/17 Unknown History Furosemide [Lasix TAB] 40 mg PO QDAY 07/29/17 07/29/17 Unknown History Gabapentin [Neurontin] 300 mg PO DAILY 07/29/17 07/29/17 Unknown History HumuLIN 70/30 Kwikpen 5 units SQ BID 07/29/17 07/29/17 Unknown History Hydralazine HCl 25 mg PO TID 07/29/17 07/29/17 Unknown History ISOSORBIDE MONOnitrate [Imdur ER] 60 mg PO QDAY 07/29/17 07/29/17 Unknown History Lisinopril [Zestril TAB] 40 mg PO QDAY 07/29/17 07/29/17 Unknown History Omeprazole 40 mg PO DAILY 07/29/17 07/29/17 Unknown History Simvastatin 40 mg PO DAILY 07/29/17 07/29/17 Unknown History Spironolactone [Aldactone] 25 mg PO QDAY 07/29/17 07/29/17 Unknown History Active Meds: Active Medications Acetaminophen (Tylenol) 650 mg PO Q4H PRN PRN Reason: Pain MILD(1-3)/Fever >100.5/[place]FFNEY Aspirin (Aspirin) [address] [facility] Last Admin: 07/31/17 09:11 Dose: 325 mg Carvedilol (Coreg) [address] [facility] Last Admin: 07/31/17 09:12 Dose: 25 mg Clonazepam (Klonopin) [address] [facility] Last Admin: 07/30/17 21:43 Dose: 1 mg Furosemide (Lasix) [address] [facility] Last Admin: 07/31/17 09:11 Dose: 40 mg Gabapentin (Neurontin) [address] [facility] Last Admin: 07/30/17 21:44 Dose: 600 mg Gabapentin (Neurontin) 300 mg PO DAILY@1700 [facility] Last Admin: 07/30/17 17:49 Dose: 300 mg Heparin Sodium (Porcine) (Heparin) 5,000 unit SUB-Q Q12HR [facility] Last Admin: 07/31/17 09:10 Dose: Not Given Hydralazine HCl (Apresoline) 10 mg IV Q6H PRN PRN Reason: HTN SBP>150 OR DBP>185 Hydralazine HCl (Apresoline) [address] [facility] Last Admin: 07/31/17 09:05 Dose: 25 mg Hydromorphone HCl (Dilaudid) 0.5 mg IV Q3H PRN PRN Reason: Pain , Severe (7-10) Insulin Human Isoph/Insulin Regular (Humulin 70/30) 5 unit SUB-Q BIDDIAB [facility] Last Admin: 07/31/17 09:06 Dose: 5 unit Insulin Human Lispro (Humalog) 0 unit SUB-Q ACHS [facility]; Protocol Last Admin: 07/31/17 07:51 Dose: Not Given Isosorbide Mononitrate (Imdur) [address] [facility] Last Admin: 07/31/17 09:12 Dose: 60 mg Lisinopril (Zestril) [address] [facility] Last Admin: 07/31/17 09:11 Dose: 40 mg Morphine Sulfate (Morphine) 2 mg IV Q4H PRN PRN Reason: Pain, Moderate (4-6) Nifedipine (Procardia Xl) [address] [facility] Last Admin: 07/31/17 09:11 Dose: 90 mg Ondansetron HCl (Zofran) 4 mg IV Q8H PRN PRN Reason: Nausea And Vomiting Oxycodone/Acetaminophen (Percocet 5/325) 1 tab PO Q6H PRN PRN Reason: Pain, Moderate (4-6) Pantoprazole Sodium (Protonix) [address] [facility] Last Admin: 07/31/17 09:12 Dose: 40 mg Pravastatin Sodium (Pravachol) [address] [facility] Last Admin: 07/30/17 21:43 Dose: 80 mg Sodium Chloride (Sodium Chloride Flush Syringe 10 Ml) [address] [facility] Last Admin: 07/31/17 09:13 Dose: 10 ml Sodium Chloride (Sodium Chloride Flush Syringe 10 Ml) 10 ml IV PRN PRN PRN Reason: LINE FLUSH Sodium Chloride (Sodium Chloride Flush Syringe 10 Ml) [address] [facility] Last Admin: 07/31/17 09:13 Dose: 10 ml Sodium Chloride (Sodium Chloride Flush Syringe 10 Ml) 10 ml IV PRN PRN PRN Reason: LINE FLUSH Spironolactone (Aldactone) [address] [facility] Last Admin: 07/31/17 09:13 Dose: 25 mg Temazepam (Restoril) [address] [facility] Last Admin: 07/30/17 21:44 Dose: 15 mg Physical Examination Vital Signs Temp Pulse Resp BP 98.8 F 71 18 138/93 07/29/17 13:04 07/29/17 13:04 07/29/17 13:04 07/29/17 13:04 General appearance: no acute distress HEENT: Positive: PERRL Cardiac: Positive: Reg Rate and Rhythm Lungs: Positive: Decreased Breath Sounds Neuro: Positive: Grossly Intact Extremities: Absent: edema Results 07/30/17 12:07 07/30/17 12:07 Cardiac Enzymes 07/30/17 Range/Units 12:07 AST 18 (5-40) units/L Lipids 07/30/17 Range/Units 12:07 Triglycerides 149 (2-149) mg/dL Cholesterol 182 (50-199) mg/dL HDL Cholesterol 34 L (40-59) mg/dL Cholesterol/HDL Ratio 5.35 % CBC 07/30/17 Range/Units 12:07 WBC 8.4 (4.5-11.0) K/mm3 RBC 6.21 H (3.65-5.03) M/mm3 Hgb 16.8 H (11.8-15.2) gm/dl Hct 51.4 H (35.5-45.6) % Plt Count 240 (140-440) K/mm3 Lymph # 2.6 (1.2-5.4) K/mm3 [place] # 0.6 (0.0-0.8) K/mm3 Eos # 0.0 (0.0-0.4) K/mm3 Baso # 0.0 (0.0-0.1) K/mm3 Comprehensive Metabolic Panel 07/30/17 Range/Units 12:07 Sodium 140 (137-145) mmol/L Potassium 4.3 (3.6-5.0) mmol/L Chloride 104.6 (98-107) mmol/L Carbon Dioxide 23 (22-30) mmol/L BUN 12 (9-20) mg/dL Creatinine 0.8 (0.8-1.5) mg/dL Glucose 95 (75-100) mg/dL Calcium 9.4 (8.4-10.2) mg/dL AST 18 (5-40) units/L ALT 11 (7-56) units/L Alkaline Phosphatase 78 (35-129) units/L Total Protein 7.2 (6.3-8.2) g/dL Albumin 4.0 (3.9-5) g/dL Assessment and Plan Embolic CVA Chest pain, atypical Hypertension Dilated Cardiomyopathy, EF 10-15% pt reports no significant coronary artery disease by [facility] 5yrs ago in [place] Presence of AICD
[2017-07-31] MEDS ORDERED: PROVENTIL IH PRN (13:01)
--- NOTE | 2017-07-31 13:02 | Progress Note ---
Assessment and Plan Assessment and plan: 51-year-old -Faroese male comes in for difficulty in talking and left upper extremity weakness, and leg, left facial droop which lasted about 30 minutes and recovered completely. This happened about 1 hour prior to arrival. Patient says that he his back to normal now. Patient has a history of hypertension and insulin-dependent diabetes coronary artery disease hyperlipidemia and gastroesophageal refers disease. He also reported tongue deviation. 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 Initial CT Scan showed per the Nurologist possibly a hole indicating an old stroke in the medulla versus noise and a subacute stroke adjacent to old right anterior parietal stroke. No recent travel or shortness of breath. No chest pain Presumed Embolic Stroke Exertional Dyspnea HTN RAYNA OBESITY Insulin dependant Diabetes Mellitus Severe Cardiomyopathy s/p Pacemaker Peripheral Neuropathy GERD HYPERLIPIDEMIA RLS PLAN: Supportive care, May need to obtain repeat CT scan brain OUTPATIENT CARDIOLOGY Change to ASA 325MG PO DAILY, Stain, Bp Control Iron studies per discussion with neurology Carotid US, Echocardiogram Reviewed adjust bp medication continue insulin therapy, Gabapentin. May need to adjust weight loss counselling provided DVT/GI prophy History Interval history: Patient seen and examined in no acute distress at this time. Reports symptoms improved. Reports shortness of breath and chest tightness this am. Hospitalist Physical - Physical exam Narrative exam: General appearance: Present: no acute distress, well-nourished, other REMAINS IRATE - EENT Eyes: Present: PERRL, EOM intact - Neck Neck: Present: supple, normal ROM - Respiratory Respiratory effort: normal Respiratory: bilateral: CTA - Cardiovascular Rhythm: regular Heart Sounds: Present: S1 & S2. Absent: systolic murmur - Extremities Extremities: no ischemia, pulses intact, pulses symmetrical, No edema, normal temperature, normal color, Full ROM Peripheral Pulses: within normal limits - Abdominal General gastrointestinal: soft, non-tender, non-distended, normal bowel sounds, other (obese) - Integumentary Integumentary: Present: clear, warm, dry - Psychiatric Psychiatric: appropriate mood/affect, other (some confusion with words) - Neurologic Neurologic: moves all extremities - Allied Health Allied health notes reviewed: nursing - Constitutional Vitals: Temp Pulse Resp BP Pulse Ox 98.2 F 69 20 106/69 95 07/31/17 07:36 07/31/17 09:13 07/31/17 07:36 07/31/17 09:13 07/31/17 10:00 General appearance: Present: no acute distress Results - Labs CBC & Chem 7: 07/30/17 12:07 07/30/17 12:07 Labs: Laboratory Last Values WBC 8.4 K/mm3 (4.5-11.0) 07/30/17 12:07 RBC 6.21 M/mm3 (3.65-5.03) H 07/30/17 12:07 Hgb 16.8 gm/dl (11.8-15.2) H 07/30/17 12:07 Hct 51.4 % (35.5-45.6) H 07/30/17 12:07 MCV 83 fl (84-94) L 07/30/17 12:07 MCH 27 pg (28-32) L 07/30/17 12:07 MCHC 33 % (32-34) 07/30/17 12:07 RDW 18.0 % (13.2-15.2) H 07/30/17 12:07 Plt Count 240 K/mm3 (140-440) 07/30/17 12:07 Lymph % (Auto) 31.3 % (13.4-35.0) 07/30/17 12:07 [place] % (Auto) 6.6 % (0.0-7.3) 07/30/17 12:07 Eos % (Auto) 0.4 % (0.0-4.3) 07/30/17 12:07 Baso % (Auto) 0.5 % (0.0-1.8) 07/30/17 12:07 Lymph # 2.6 K/mm3 (1.2-5.4) 07/30/17 12:07 [place] # 0.6 K/mm3 (0.0-0.8) 07/30/17 12:07 Eos # 0.0 K/mm3 (0.0-0.4) 07/30/17 12:07 Baso # 0.0 K/mm3 (0.0-0.1) 07/30/17 12:07 Seg Neutrophils % 61.2 % (40.0-70.0) 07/30/17 12:07 Seg Neutrophils # 5.2 K/mm3 (1.8-7.7) 07/30/17 12:07 PT 12.4 Sec. (12.2-14.9) 07/29/17 13:23 INR 0.88 (0.87-1.13) 07/29/17 13:23 APTT 33.1 Sec. (24.2-36.6) 07/29/17 13:23 Thrombin Time 15.6 Sec. (15.1-19.6) 07/29/17 13:23 Sodium 140 mmol/L (137-145) 07/30/17 12:07 Potassium 4.3 mmol/L (3.6-5.0) 07/30/17 12:07 Chloride 104.6 mmol/L (98-107) 07/30/17 12:07 Carbon Dioxide 23 mmol/L (22-30) 07/30/17 12:07 Anion Gap 17 mmol/L 07/30/17 12:07 BUN 12 mg/dL (9-20) 07/30/17 12:07 Creatinine 0.8 mg/dL (0.8-1.5) 07/30/17 12:07 Estimated GFR > 60 ml/min 07/30/17 12:07 BUN/Creatinine Ratio 15 % 07/30/17 12:07 Glucose 95 mg/dL (75-100) 07/30/17 12:07 POC Glucose 90 (70-105) 07/31/17 07:06 Hemoglobin A1c 4.9 % (4-6) 07/29/17 13:23 Calcium 9.4 mg/dL (8.4-10.2) 07/30/17 12:07 Iron 145 ug/dL (49-181) 07/30/17 12:07 TIBC 350 mcg/dL (250-450) 07/30/17 12:07 Ferritin 73.3 ng/mL (13.0-400.0) 07/30/17 12:07 Total Bilirubin 0.80 mg/dL (0.1-1.2) 07/30/17 12:07 AST 18 units/L (5-40) 07/30/17 12:07 ALT 11 units/L (7-56) 07/30/17 12:07 Alkaline Phosphatase 78 units/L (35-129) 07/30/17 12:07 Troponin T < 0.010 ng/mL (0.00-0.029) 07/29/17 13:23 NT-Pro-B Natriuret Pep 864.3 pg/mL (0-900) 07/29/17 13:23 Total Protein 7.2 g/dL (6.3-8.2) 07/30/17 12:07 Albumin 4.0 g/dL (3.9-5) 07/30/17 12:07 Albumin/Globulin Ratio 1.3 % 07/30/17 12:07 Triglycerides 149 mg/dL (2-149) 07/30/17 12:07 Cholesterol 182 mg/dL (50-199) 07/30/17 12:07 LDL Cholesterol Direct 121 mg/dL (50-130) 07/30/17 12:07 HDL Cholesterol 34 mg/dL (40-59) L 07/30/17 12:07 Cholesterol/HDL Ratio 5.35 % 07/30/17 12:07
[2017-07-31] MEDS ORDERED: COUMADIN PO SCH ×2 (17:00)
[2017-07-31] MEDS: NEURONTIN PO SCH ×2 (18:31→21:43)
--- NOTE | 2017-07-31 19:36 | XRay Report ---
FINAL REPORT EXAM: XR CHEST 1V AP HISTORY: SHORTNESS OF BREATH TECHNIQUE: upright single view chest PRIORS: None. FINDINGS: Cardiac silhouette is prominent size. No focal pulmonary infiltrate is identified. No pleural fluid collection seen. Pulmonary vasculature is unremarkable. Left pacemaker identified lead wires intact IMPRESSION: Mild cardiomegaly Cardiac pacemaker No acute pulmonary findings
[2017-07-31] MEDS: PERCOCET 5/325 PO PRN (20:04)
[2017-07-31] MEDS: PRAVACHOL PO SCH (21:42)
[2017-07-31] MEDS: RESTORIL PO SCH (21:42)
[2017-07-31 23:15] LABS: INR 0.92 (0.87-1.13)
[2017-08-01 00:21] LABS: Creatine Kinase MB 2.6 ng/mL (0.0-4.0)
[2017-08-01] MEDS: PERCOCET 5/325 PO PRN ×2 (01:22→22:01)
[2017-08-01 06:16] LABS: INR 0.95 (0.87-1.13)
--- NOTE | 2017-08-01 09:58 | Discharge Summary ---
Providers - Providers Date of Admission: 07/29/17 15:52 Attending physician: LEONA OMALLEY MD 07/29/17 Consult to Physician [CONS] Routine Comment: Consulting Provider: COLEMAN DUARTE Physician Instructions: Reason For Exam: TIA 07/29/17 21:43 Occupational Therapy Evaluate and Treat [CONS] Routine Comment: Reason For Exam: Neuro deficits Physical Therapy Evaluation and Treat [CONS] Routine Comment: Reason For Exam: Neuro deficits 07/31/17 10:10 Consult to Physician [CONS] Routine Comment: Consulting Provider: CHRISTIAN PEREZ Physician Instructions: Reason For Exam: chest pain, exertional dyspnea Primary care physician: ROSSY CARDONA Hospitalization Reason for admission: CVA Condition: Stable Hospital course: 51-year-old -[place] male comes in for difficulty in talking and left upper extremity weakness, and leg, left facial droop which lasted about 30 minutes and recovered completely. This happened about 1 hour prior to arrival. Patient says that he his back to normal now. Patient has a history of hypertension and insulin-dependent diabetes coronary artery disease hyperlipidemia and gastroesophageal refers disease. He also reported tongue deviation. 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 Initial CT Scan showed per the Nurologist possibly a hole indicating an old stroke in the medulla versus noise and a subacute stroke adjacent to old right anterior parietal stroke. No recent travel or shortness of breath. No chest pain. Given patient's risk factors and inability to obtain an MRI due to defibrillator sites in his clinical presentation was very convincing for possible embolic stroke for which the patient was treated for. He did have an ejection fraction of 15%. His vision impairment resolved. We did recommend that the patient was started on warfarin therapy did have a CTA of the Doppler ruled out pulmonary embolism. He does have significant pulmonary disease and is being followed by label remover and became noted to have hypoxia on exertion with saturation of about 83% requiring home oxygen. Sclera is stable for discharge had extensive counseling about weight loss and also about compliance with his medication and also obtaining a CPAP for his sleep apnea. Cardiology and neurologic symptoms as noted. He does understand his risk factors. No significant neurological sequela was noted. Discharge diagnosis Embolic Stroke Exertional Dyspnea HTN RAYNA Presumed COPD secondary to smoking OBESITY Insulin dependant Diabetes Mellitus Severe Cardiomyopathy s/p Pacemaker Hypoxic respiratory failure Peripheral Neuropathy GERD HYPERLIPIDEMIA RLS Disposition: [id number] HOME UNDER HOME [facility] Time spent for discharge: 35 mins Core Measure Documentation - Palliative Care Palliative Care/ Comfort Measures: Not Applicable - Core Measures Any of the following diagnoses?: none - VTE Discharge Requirements Deep Vein Thrombosis/Pulmonary Embolism Present on Admission: No Exam - Physical Exam Narrative exam: General appearance: Present: no acute distress, well-nourished, other REMAINS IRATE - EENT Eyes: Present: PERRL, EOM intact - Neck Neck: Present: supple, normal ROM - Respiratory Respiratory effort: normal Respiratory: bilateral: CTA - Cardiovascular Rhythm: regular Heart Sounds: Present: S1 & S2. Absent: systolic murmur - Extremities Extremities: no ischemia, pulses intact, pulses symmetrical, No edema, normal temperature, normal color, Full ROM Peripheral Pulses: within normal limits - Abdominal General gastrointestinal: soft, non-tender, non-distended, normal bowel sounds, other (obese) - Integumentary Integumentary: Present: clear, warm, dry - Psychiatric Psychiatric: appropriate mood/affect, other (some confusion with words) - Neurologic Neurologic: moves all extremities - Allied Health Allied health notes reviewed: nursing - Constitutional Vitals: Temp Pulse Resp BP Pulse Ox 97.7 F 78 18 107/68 96 08/01/17 07:47 08/01/17 08:00 08/01/17 07:47 08/01/17 07:47 08/01/17 07:47 Plan Activity: advance as tolerated, fall precautions Diet: low fat, low cholesterol, low salt, diabetic Special Instructions: record daily weights, record daily BP diary, record blood sugar diary, physical therapy, occupational therapy, other (speech therapy) Additional Instructions: must follow with primary Executor Of Estate in 3-5 days. Check INR tomorrow 08/02/17. Must follow with pulmonary for restablishing RAYNA therapy Follow up with: ROSSY CARDONA MD [Primary Care Provider] - 3-5 Days Forms: Warfarin Discharge Instruction Prescriptions: clonazePAM [KlonoPIN] 1 mg PO QHS #30 tablet Pravastatin [Pravachol] 80 mg PO QHS #30 tablet Aspirin [Adult Low Dose Aspirin EC] 81 mg PO DAILY #30 tablet. Carvedilol [Coreg] 25 mg PO BID #60 tablet NIFEdipine XL [Procardia Xl] 90 mg PO QDAY #30 tablet oxyCODONE /ACETAMINOPHEN [Percocet 5/325 mg] 1 tab PO Q6H PRN #14 tablet PRN Reason: Pain, Moderate (4-6) Pantoprazole [Protonix TAB] 40 mg PO DAILY #30 tablet Warfarin [Coumadin] 7.5 mg PO DAILY@1700 #30 tablet
[2017-08-01] MEDS: ALDACTONE PO SCH (10:38)
[2017-08-01] MEDS: LASIX PO SCH (10:39)
[2017-08-01] MEDS: PROTONIX PO SCH (10:39)
[2017-08-01] MEDS: PROCARDIA XL PO SCH (10:39)
[2017-08-01] MEDS: ASPIRIN PO SCH (10:39)
[2017-08-01] MEDS: IMDUR PO SCH (10:40)
[2017-08-01] MEDS: ZESTRIL PO SCH (10:41)
[2017-08-01] MEDS: COREG PO SCH ×2 (10:41→22:02)
[2017-08-01] MEDS: APRESOLINE PO SCH ×3 (10:41→21:55)
[2017-08-01] MEDS: HumaLOG SUB-Q SCH ×4 (10:42→21:57)
[2017-08-01] MEDS: SODIUM CHLORIDE FLUSH SYRINGE 10 ML IV SCH ×2 (10:43→21:58)
--- NOTE | 2017-08-01 10:49 | Progress Note ---
Assessment and Plan Acute Embolic CVA Chest pain, atypical Hypertension Severe Dilated Cardiomyopathy, EF 10-15% pt reports no significant coronary artery disease by [facility] 5yrs ago in [place] Presence of AICD Recommendations: Given the severity of his cardiomyopathy, he is at elevated risk of cardioembolic events. Therefore, Coumadin therapy was re-initiated with a target INR of 2.0-3.0. Otherwise, continue routine medical therapy for nonischemic cardiomyopathy to include afterload reducing agents, beta blockers. Stable cardiac an for discharge home. Patient will f/u with his primary lead applier within 3-5 days. Subjective Date of service: 08/01/17 Interval history: Patient is resting in bed comfortably. Stable sinus rhythm on telemetry monitoring. Objective Vital Signs Temp Pulse Resp BP BP Pulse Ox 08/01/17 10:41 74 100/70 08/01/17 10:40 74 100/70 08/01/17 10:38 74 100/68 08/01/17 08:00 78 08/01/17 07:47 97.7 F 68 18 107/68 96 08/01/17 06:26 97.7 F 59 L 20 103/69 92 08/01/17 00:16 97.6 F 68 20 98/66 94 07/31/17 22:00 81 07/31/17 20:05 77 110/78 07/31/17 20:00 98.0 F 77 18 110/78 97 07/31/17 16:58 66 07/31/17 16:40 98.2 F 68 20 103/68 97 07/31/17 13:37 78 106/78 07/31/17 12:35 98.1 F 69 20 106/78 96 - Physical Examination General: No Apparent Distress Cardiac: Positive: Reg Rate and Rhythm - Labs and Meds Cardiac Enzymes 07/31/17 07/31/17 Range/Units 13:52 22:47 CK-MB (CK-2) 3.0 2.6 (0.0-4.0) ng/mL Coagulation 07/31/17 08/01/17 Range/Units 22:47 05:10 PT 12.8 13.1 (12.2-14.9) Sec. INR 0.92 0.95 (0.87-1.13) - Imaging and Cardiology EKG: report reviewed (sinus bradycardia prolonged CA interval and nonspecific ST -T wave changes-EKG interpreted by me)
[2017-08-01] MEDS: NEURONTIN PO SCH ×2 (18:22→21:54)
[2017-08-01] MEDS ORDERED: COUMADIN PO SCH (18:30)
--- NOTE | 2017-08-01 19:24 | Progress Note ---
Assessment and Plan Assessment and plan: 51-year-old -[place] male comes in for difficulty in talking and left upper extremity weakness, and leg, left facial droop which lasted about 30 minutes and recovered completely. This happened about 1 hour prior to arrival. Patient says that he his back to normal now. Patient has a history of hypertension and insulin-dependent diabetes coronary artery disease hyperlipidemia and gastroesophageal refers disease. He also reported tongue deviation. 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 Initial CT Scan showed per the Nurologist possibly a hole indicating an old stroke in the medulla versus noise and a subacute stroke adjacent to old right anterior parietal stroke. No recent travel or shortness of breath. No chest pain Presumed Embolic Stroke Exertional Dyspnea Hypoxia with sat of 83 on room air HTN RAYNA OBESITY Insulin dependant Diabetes Mellitus Severe Cardiomyopathy s/p Pacemaker Peripheral Neuropathy GERD HYPERLIPIDEMIA RLS PLAN: Supportive care, R/O PE Patient will need home o2 on discharge May need to obtain repeat CT scan brain OUTPATIENT CARDIOLOGY Change to ASA 325MG PO DAILY, Stain, Bp Control Iron studies per discussion with neurology Carotid US, Echocardiogram Reviewed adjust bp medication continue insulin therapy, Gabapentin. May need to adjust weight loss counselling provided DVT/GI prophy History Interval history: Patient seen and examined in no acute distress at this time. Reports symptoms improved. No chest pain but continues with shortness of breath on exertion. Hospitalist Physical - Physical exam Narrative exam: General appearance: Present: no acute distress, well-nourished, other REMAINS IRATE - EENT Eyes: Present: PERRL, EOM intact - Neck Neck: Present: supple, normal ROM - Respiratory Respiratory effort: normal Respiratory: bilateral:diminished - Cardiovascular Rhythm: regular Heart Sounds: Present: S1 & S2. Absent: systolic murmur - Extremities Extremities: no ischemia, pulses intact, pulses symmetrical, No edema, normal temperature, normal color, Full ROM Peripheral Pulses: within normal limits - Abdominal General gastrointestinal: soft, non-tender, non-distended, normal bowel sounds, other (obese) - Integumentary Integumentary: Present: clear, warm, dry - Psychiatric Psychiatric: appropriate mood/affect, other (some confusion with words) - Neurologic Neurologic: moves all extremities - Allied Health Allied health notes reviewed: nursing - Constitutional Vitals: Temp Pulse Resp BP Pulse Ox 98.4 F 82 18 110/72 95 08/01/17 16:00 08/01/17 16:00 08/01/17 16:00 08/01/17 16:00 08/01/17 16:00 General appearance: Present: no acute distress Results - Labs CBC & Chem 7: 07/30/17 12:07 07/30/17 12:07 Labs: Laboratory Last Values WBC 8.4 K/mm3 (4.5-11.0) 07/30/17 12:07 RBC 6.21 M/mm3 (3.65-5.03) H 07/30/17 12:07 Hgb 16.8 gm/dl (11.8-15.2) H 07/30/17 12:07 Hct 51.4 % (35.5-45.6) H 07/30/17 12:07 MCV 83 fl (84-94) L 07/30/17 12:07 MCH 27 pg (28-32) L 07/30/17 12:07 MCHC 33 % (32-34) 07/30/17 12:07 RDW 18.0 % (13.2-15.2) H 07/30/17 12:07 Plt Count 240 K/mm3 (140-440) 07/30/17 12:07 Lymph % (Auto) 31.3 % (13.4-35.0) 07/30/17 12:07 [place] % (Auto) 6.6 % (0.0-7.3) 07/30/17 12:07 Eos % (Auto) 0.4 % (0.0-4.3) 07/30/17 12:07 Baso % (Auto) 0.5 % (0.0-1.8) 07/30/17 12:07 Lymph # 2.6 K/mm3 (1.2-5.4) 07/30/17 12:07 [place] # 0.6 K/mm3 (0.0-0.8) 07/30/17 12:07 Eos # 0.0 K/mm3 (0.0-0.4) 07/30/17 12:07 Baso # 0.0 K/mm3 (0.0-0.1) 07/30/17 12:07 Seg Neutrophils % 61.2 % (40.0-70.0) 07/30/17 12:07 Seg Neutrophils # 5.2 K/mm3 (1.8-7.7) 07/30/17 12:07 PT 13.1 Sec. (12.2-14.9) 08/01/17 05:10 INR 0.95 (0.87-1.13) 08/01/17 05:10 APTT 33.1 Sec. (24.2-36.6) 07/29/17 13:23 Thrombin Time 15.6 Sec. (15.1-19.6) 07/29/17 13:23 Sodium 140 mmol/L (137-145) 07/30/17 12:07 Potassium 4.3 mmol/L (3.6-5.0) 07/30/17 12:07 Chloride 104.6 mmol/L (98-107) 07/30/17 12:07 Carbon Dioxide 23 mmol/L (22-30) 07/30/17 12:07 Anion Gap 17 mmol/L 07/30/17 12:07 BUN 12 mg/dL (9-20) 07/30/17 12:07 Creatinine 0.8 mg/dL (0.8-1.5) 07/30/17 12:07 Estimated GFR > 60 ml/min 07/30/17 12:07 BUN/Creatinine Ratio 15 % 07/30/17 12:07 Glucose 95 mg/dL (75-100) 07/30/17 12:07 POC Glucose 103 (70-105) 08/01/17 16:14 Hemoglobin A1c 4.9 % (4-6) 07/29/17 13:23 Calcium 9.4 mg/dL (8.4-10.2) 07/30/17 12:07 Iron 145 ug/dL (49-181) 07/30/17 12:07 TIBC 350 mcg/dL (250-450) 07/30/17 12:07 Ferritin 73.3 ng/mL (13.0-400.0) 07/30/17 12:07 Total Bilirubin 0.80 mg/dL (0.1-1.2) 07/30/17 12:07 AST 18 units/L (5-40) 07/30/17 12:07 ALT 11 units/L (7-56) 07/30/17 12:07 Alkaline Phosphatase 78 units/L (35-129) 07/30/17 12:07 Total Creatine Kinase 205 units/L (55-170) H 07/31/17 22:47 CK-MB (CK-2) 2.6 ng/mL (0.0-4.0) 07/31/17 22:47 CK-MB (CK-2) Rel Index 1.2 (0-4) 07/31/17 22:47 Troponin T 0.068 ng/mL (0.00-0.029) H D 07/31/17 22:47 NT-Pro-B Natriuret Pep 864.3 pg/mL (0-900) 07/29/17 13:23 Total Protein 7.2 g/dL (6.3-8.2) 07/30/17 12:07 Albumin 4.0 g/dL (3.9-5) 07/30/17 12:07 Albumin/Globulin Ratio 1.3 % 07/30/17 12:07 Triglycerides 149 mg/dL (2-149) 07/30/17 12:07 Cholesterol 182 mg/dL (50-199) 07/30/17 12:07 LDL Cholesterol Direct 121 mg/dL (50-130) 07/30/17 12:07 HDL Cholesterol 34 mg/dL (40-59) L 07/30/17 12:07 Cholesterol/HDL Ratio 5.35 % 07/30/17 12:07
[2017-08-01] MEDS: RESTORIL PO SCH (21:54)
[2017-08-01] MEDS: PRAVACHOL PO SCH (21:55)
[2017-08-02 06:46] LABS: INR 0.94 (0.87-1.13)
[2017-08-02] MEDS: HumaLOG SUB-Q SCH (07:30)
--- NOTE | 2017-08-02 07:46 | Nuclear Medicine Report ---
FINAL REPORT EXAM: NM LUNG SCAN PERF/VENT HISTORY: R/O PE TECHNIQUE: Ventilation-perfusion scan Study performed with 5 millicuries IV technetium 99 M MAA for perfusion scan and 15 millicuries Xe-133 for perfusion study PRIORS: Correlation made with chest radiograph of July 31, 2017 FINDINGS: Perfusion study distribution is homogeneous no perfusion defects are identified. On ventilation study there is normal distribution of the radiotracer with normal washout. IMPRESSION: Negative. No scintigraphic evidence for acute pulmonary embolus
[2017-08-02] MEDS: APRESOLINE PO SCH (08:00)
[2017-08-02 09:02] VITALS: BP 113/84
--- NOTE | 2017-08-02 09:56 | Event Note ---
Date: 08/02/17 Patient on discusion with him, has hx of COPD, Obstructive sleep apnea and was on CPAP qhs [place] got to [place]. He also has severe cardiomyopathy with an EF of 10% and has been have progressively worsening shortness of breath with minimal exertion. He is followed by a senior applications developer at the [facility] and now is noted to have oxygen saturation of 84% on Room air with exertion of less than 10 feet.
[2017-08-02] MEDS: ZESTRIL PO SCH (10:00)
[2017-08-02] MEDS: ASPIRIN PO SCH (10:00)
[2017-08-02] MEDS: LASIX PO SCH (10:00)
[2017-08-02] MEDS: PROCARDIA XL PO SCH (10:00)
[2017-08-02] MEDS: ALDACTONE PO SCH (10:00)
[2017-08-02] MEDS: PROTONIX PO SCH (10:00)
[2017-08-02] MEDS: IMDUR PO SCH (10:00)
[2017-08-02] MEDS: SODIUM CHLORIDE FLUSH SYRINGE 10 ML IV SCH (10:00)
[2017-08-02] MEDS: COREG PO SCH (10:00)
--- NOTE | 2017-08-02 11:20 | Progress Note ---
Assessment and Plan Acute Embolic TIA Chest pain, atypical Hypertension Severe Dilated Cardiomyopathy, EF 10-15% pt reports no significant coronary artery disease by [facility] 5yrs ago in [place] initiated on warfarin. Target INR 2-3. Presence of AICD Recommendations: Continue Warfarin given the severity of his cardiomyopathy, and suspecteed cardioembolic TIA. Target INR of 2.0-3.0. Otherwise, continue routine medical therapy for nonischemic cardiomyopathy. Stable cardiac an. Once discharged, patient advised to f/u with his primary cake batter mixer within 3-5 days. Subjective Date of service: 08/02/17 Interval history: Patient is resting in bed comfortably. He has no cardiac complaints. Stable sinus rhythm on telemetry monitoring. Objective Vital Signs Temp Pulse Resp BP BP Pulse Ox 08/02/17 08:30 97.4 F L 65 20 113/84 99 08/02/17 08:00 78 08/02/17 05:17 98.9 F 60 20 98/71 100 08/02/17 03:55 60 98/71 100 08/02/17 00:38 98.3 F 87 18 100/62 97 08/02/17 00:00 60 08/01/17 22:00 96 08/01/17 20:08 98.3 F 66 18 118/80 100 08/01/17 19:46 66 118/80 98 08/01/17 16:00 98.4 F 82 18 110/72 95 08/01/17 12:05 97.7 F 74 20 115/74 99 - Physical Examination General: No Apparent Distress HEENT: Positive: PERRL Cardiac: Positive: Reg Rate and Rhythm Lungs: Positive: Decreased Breath Sounds Neuro: Positive: Grossly Intact Extremities: Absent: edema - Labs and Meds Coagulation 08/02/17 Range/Units 05:47 PT 13.0 (12.2-14.9) Sec. INR 0.94 (0.87-1.13) - Imaging and Cardiology EKG: report reviewed (sinus bradycardia prolonged ND interval and nonspecific ST -T wave changes-EKG interpreted by me)
--- NOTE | 2017-08-02 13:00 | Vascular Lab Report ---
CAROTID DUPLEX STUDY: RIGHT PSVEDV CCA PROX:5715 CCA DIST:5419 ICA PROX:3316 ICA MID:5828 ICA DIST:5524 ECA: 44 VERT: 37 17 LEFT PSVEDV CCA PROX:6217 CCA DIST:5217 ICA PROX:3114 ICA MID:4924 ICA DIST:3415 ECA: 43 VERT: 28 11 REASON FOR EXAM: Stroke. COMMENTS ON THE RIGHT: Doppler frequency analysis is consistent with 16 to 49 percent diameter reduction of the internal carotid artery. Minimal amount of plaque is seen. The common carotid artery is patent. The external carotid artery is patent. The vertebral artery has antegrade flow. COMMENTS ON THE LEFT: Doppler frequency analysis is consistent with 16 to 49 percent diameter reduction of the internal carotid artery. Minimal amount of plaque is seen. The common carotid artery is patent. The external carotid artery is patent. The vertebral artery has antegrade flow. IMPRESSION: Less than 50% diameter reduction in the internal carotid arteries bilaterally.
== END 2017-08-02 10:10 | disposition home health service (06) | DRG 64 ==
LOC: ED 13:04 → 4A 15:52
PROVIDERS: ADMIT Internal Medicine; ATTEND Internal Medicine
DX: I63.9 Cerebral infarction, unspecified (principal); J96.91 Respiratory failure, unspecified with hypoxia; I42.0 Dilated cardiomyopathy; G47.33 Obstructive sleep apnea (adult) (pediatric); K21.9 Gastro-esophageal reflux disease without esophagitis; E66.9 Obesity, unspecified; I10 Essential (primary) hypertension; I25.10 Atherosclerotic heart disease of native coronary artery without angina pectoris; E78.5 Hyperlipidemia, unspecified; G25.81 Restless legs syndrome; E11.42 Type 2 diabetes mellitus with diabetic polyneuropathy; G47.8 Other sleep disorders; J44.9 Chronic obstructive pulmonary disease, unspecified; Z79.4 Long term (current) use of insulin; Z68.34 Body mass index [BMI] 34.0-34.9, adult; Z95.0 Presence of cardiac pacemaker; Z79.899 Other long term (current) drug therapy; Z88.0 Allergy status to penicillin
CPT/HCPCS: 36415; 70450; 71045; 78582; 80048; 80053; 80061; 82550; 82553; 82728; 82962; 83036; 83550; 83880; 84484; 85025; 85610; 85670; 85730; 93005; 93010; 93306; 93880; 94760; A9270-GY; A9540; A9558; G8978-GP; G8979-GP; G8980-GP; G8987-GO; G8988-GO; G8989-GO; J1644; J1815; J2270; J2997

== ENCOUNTER 2018-07-12 17:39 | Emergency (ER) | payer MEDICARE ==
[2018-07-12 17:50] VITALS: BP 106/77
[2018-07-12] MEDS ORDERED: IBUPROFEN PO ONE ×2 (17:57→17:59)
--- NOTE | 2018-07-12 18:01 | Emergency Department Report ---
Blank Doc - Documentation Documentation: Pain and swelling in rt elbow. Started 5 days ago. Similar episode in the past. Pt with multiple medical problems. EXT: no CCE. Positive TTP rt elbow with mild swelling when compared to left elbow Rt elbow pain- probably bursitis Xray Rt elbow Motrin given in ED Patient screened by medical provider
--- NOTE | 2018-07-12 18:32 | XRay Report ---
XR ELBOW 3+V RT CLINICAL INDICATION: Male, 52 years of age. RT elbow swelling and pain COMPARISON: None. FINDINGS: 3 views of right elbow obtained. Soft tissue swelling on the dorsum of the elbow. Moderate olecranon enthesophyte. No joint effusion. Minimal hypertrophic spurring of the coronoid process of t he ulna. No acute fracture or dislocation. IMPRESSION: Findings concerning for olecranon bursitis. Moderate olecranon enthesophyte. This document is electronically signed by Rubi Rodriguez DO., July 12 2018 06:30:35 PM ET
[2018-07-12] MEDS ORDERED: DELTASONE PO ONE (18:58)
[2018-07-12] MEDS ORDERED: TORADOL IM ONE (18:58)
[2018-07-12] MEDS ORDERED: PERCOCET 5/325 PO ONE (18:58)
--- NOTE | 2018-07-12 19:04 | Emergency Department Report ---
Upper Extremity - [facility] Chief Complaint: Extremity Injury, Upper Stated Complaint: PAIN/SWELLING R ELBOW Time Seen by Provider: 07/12/18 17:54 Upper Extremity: Right Elbow Occurred When: 4 Days Mechanism: Other (NO TRAUMA) Severity: mild Symptoms: Yes Pain with Movement, Yes Swelling, No Deformity, No Limited Range of Movement, No Numbness, No Weakness, No Bruising/Ecchymosis, No Laceration or Abrasion Other History: NO TRAUMA. PAIN R ELBOW. NO HISTORY OF THE SAME. XRAY NOTED CONSISTENT WITH BURSITIS ED Review of Systems ROS: Stated complaint: PAIN/SWELLING R ELBOW Other details as noted in HPI Comment: All other systems reviewed and negative Constitutional: denies: chills Eyes: denies: as per HPI ENT: denies: ear pain Respiratory: denies: cough Cardiovascular: denies: palpitations Gastrointestinal: denies: nausea Genitourinary: denies: dysuria Musculoskeletal: as per HPI Skin: denies: rash Neurological: denies: weakness Psychiatric: denies: depression Hematological/Lymphatic: denies: easy bleeding ED Past Medical Hx - Past Medical History Hx Hypertension: Yes Hx Congestive Heart Failure: Yes Hx Diabetes: Yes Hx COPD: Yes - Surgical History Past Surgical History?: Yes Hx Coronary Stent: No Hx Internal Defibrillator: Yes Hx Cholecystectomy: No Hx Appendectomy: No Hx Breast Surgery: No - Family History Family history: no significant - Social History Smoking Status: Never Smoker Substance Use Type: None - Medications Home Medications: Home Medications Medication Instructions Recorded Confirmed Last Taken Type Furosemide [Lasix TAB] 40 mg PO QDAY 07/29/17 07/29/17 Unknown History Gabapentin [Neurontin] 300 mg PO DAILY 07/29/17 07/29/17 Unknown History HumuLIN 70/30 Kwikpen 5 units SQ BID 07/29/17 07/29/17 Unknown History Hydralazine HCl 25 mg PO TID 07/29/17 07/29/17 Unknown History ISOSORBIDE MONOnitrate [Imdur ER] 60 mg PO QDAY 07/29/17 07/29/17 Unknown His tory Lisinopril [Zestril TAB] 40 mg PO QDAY 07/29/17 07/29/17 Unknown History Spironolactone [Aldactone] 25 mg PO QDAY 07/29/17 07/29/17 Unknown History Aspirin [Adult Low Dose Aspirin EC] 81 mg PO DAILY #30 tablet. 08/01/17 Unknown Rx Carvedilol [Coreg] 25 mg PO BID #60 tablet 08/01/17 Unknown Rx NIFEdipine XL [Procardia Xl] 90 mg PO QDAY #30 tablet 08/01/17 Unknown Rx Pantoprazole [Protonix TAB] 40 mg PO DAILY #30 tablet 08/01/17 Unknown Rx Pravastatin [Pravachol] 80 mg PO QHS #30 tablet 08/01/17 Unknown Rx Warfarin [Coumadin] 7.5 mg PO DAILY@1700 #30 tablet 08/01/17 Unknown Rx clonazePAM [KlonoPIN] 1 mg PO QHS #30 tablet 08/01/17 Unknown Rx oxyCODONE /ACETAMINOPHEN [Percocet 1 tab PO Q6H PRN #14 tablet 08/01/17 Unknown Rx 5/325 mg] metroNIDAZOLE [Flagyl] 500 mg PO Q12HR #20 tab 07/12/18 Unknown Rx predniSONE [Deltasone] 20 mg PO DAILY #5 tablet 07/12/18 Unknown Rx traMADol [Ultram] 50 mg PO Q6HR PRN #12 tablet 07/12/18 Unknown Rx Upper Extremity Exam - Exam General: Vital signs noted. No distress. Alert and acting appropriately. Head and Torso: No HEENT Abnormality, No Neck Tenderness, No Chest/Lungs Abnormality, No Abdominal Tenderness, No Back Tenderness Shoulder Exam: Yes Normal Range of Motion in Shoulder, No Shoulder Tenderness, No Clavicle Tenderness, No Shoulder Deformity, No AC Joint Tenderness Arm Exam: No Arm/Humerus Tenderness, No Arm Deformity Elbow: Yes Elbow Tenderness, Yes Normal Range of Motion in Elbow, No Elbow Deformity Forearm: No Forearm Tenderness, No Forearm Deformity, No Pain with Pronation, No Pain with Supination Wrist: Yes Normal ROM in Wrist, No Wrist Tenderness, No Wrist Deformity, No Snuffbox Tenderness, No Pain with Axial Thumb Compression Hand: Yes Normal ROM in Digit(s), No Hand Tenderness, No Hand Deformity, No Digit Tenderness, No Digit(s) Deformity, No Tendon Dysfunction CMS Exam: Yes Normal Distal Pulses, Yes Normal Capillary Refill, No Broken Skin, No Normal Distal Sensation ED Course Vital Signs 07/12/18 17:48 Temperature 98 F Pulse Rate 71 Respiratory 16 Rate Blood Pressure 106/77 O2 Sat by Pulse 98 Oximetry - Reevaluation(s) Reevaluation #1: 07/12/18 19:03 INR CHECKED AT PCP THIS WEEK AND THERAP. NO TRAUMA NO HX GOUT ED Medical Decision Making - Radiology Data Radiology results: report reviewed, image reviewed - Medical Decision Making BURSITIS NO TRAUMA DC HOME WITH ORTHO FOLLOW UP Vital Signs 07/12/18 17:48 Temperature 98 F Pulse Rate 71 Respiratory 16 Rate Blood Pressure 106/77 O2 Sat by Pulse 98 Oximetry Critical care attestation.: If time is entered above; I have spent that time in minutes in the direct care o f this critically ill patient, excluding procedure time. ED Disposition Clinical Impression: Bursitis Disposition: DC-01 TO HOME OR SELFCARE Is pt being admited?: No Does the pt Need Aspirin: No Condition: Stable Instructions: Elbow Bursitis (ED) Additional Instructions: HYDRATE WELL WITH WATER ACTIVITY TOLERATED DIET TOLERATED MED ORDERED SLING FOR 48 HOURS ALTERNATE WARM AND COLD COMPRESSES FOLLOW UP ORTHO REFERRAL BELOW Referrals: TRAE ARGUETA MD [Staff Physician] - 3-5 Days Time of Disposition: 19:02
== END 2018-07-12 20:29 | disposition home or self-care (01) ==
LOC: ED 17:39
DX: M71.9 Bursopathy, unspecified (principal); I11.0 Hypertensive heart disease with heart failure; I50.9 Heart failure, unspecified; E11.9 Type 2 diabetes mellitus without complications; J44.9 Chronic obstructive pulmonary disease, unspecified; Z79.899 Other long term (current) drug therapy; Z88.0 Allergy status to penicillin
CPT/HCPCS: 73080; 96372; 99283; J1885; J7512

== ENCOUNTER 2021-12-06 08:15 | Outpatient (CLI) | payer MEDICARE ==
--- NOTE | 2021-12-06 09:19 | XRay Report ---
RIGHT ELBOW 3 VIEWS INDICATION: RIGHT ELBOW PAIN [id number]. COMPARISON: 07/12/2018 IMPRESSION: No acute osseous or soft tissue abnormality. Mild osteoarthritic changes are again id entified which appear stable. Moderate olecranon enthesophytes with overlying soft tissue swelling is also noted. No overwhelming change is appreciated since 07/12/2018. Signer Name: Van Meng Jr, MD Signed: 12/06/2021 9:14 AM Workstation Name: [id number]
== END 2021-12-06 08:16 | disposition home or self-care (01) ==
LOC: XRAY 08:15
PROVIDERS: ATTEND Internal Medicine
DX: M19.021 Primary osteoarthritis, right elbow (principal); M79.89 Other specified soft tissue disorders; M77.9 Enthesopathy, unspecified